=== PATIENT | female | born 1990 | race Two or more races ===

== ENCOUNTER 2022-09-01 14:59 | Emergency (ER) | payer OTHER ==
[~2022-09-01] VITALS: Ht 162.6 cm; Wt 109.4 kg
[2022-09-01] MEDS ORDERED: TAMIFLU75 MG PO (18:14)
== END 2022-09-01 18:21 | disposition home or self-care (01) ==
LOC: ED 14:59
DX: J10.1 Influenza due to other identified influenza virus with other respiratory manifestations (principal); Z20.822 Contact with and (suspected) exposure to COVID-19
CPT/HCPCS: 84703; 87502; 99283; C9803; U0003